=== PATIENT | female | born 1940 | race Caucasian/White ===

== ENCOUNTER 2021-05-06 20:00 | Inpatient (IN) | payer MEDICARE, MEDICAID, SELFPAY ==
[2021-05-06 20:04] VITALS: BP 163/69; PULSE 83; RESP 18; TEMP 36.6; O2SAT 97; BMI 27.1
--- NOTE | 2021-05-06 20:43 | EKG12_ITS ---
Test Reason : DYSRHYTHMIA Blood Pressure : / mmHG Vent. Rate : 082 BPM Atrial Rate : 082 BPM P-R Int : 206 ms QRS Dur : 068 ms QT Int : 404 ms P-R-T Axes : 065 -22 076 degrees QTc Int : 472 ms Normal sinus rhythm Low voltage QRS Borderline ECG Confirmed by QUANG FRY, XIANG ([id number]), medical editor PUJA STEWARD ([id number]) on 05/09/2021 11:15:59 AM Referred By: JOE Confirmed By:XIANG DEL RIO MD
[2021-05-06 20:51] LABS: Absolute Lymphocyte Count 1.38 X10^3/uL (0.83-4.51); Absolute Neutrophil Count 9.7 X10^3/uL (2.0-7.7); Basophil% 0.8 % (0-1); Eosinophil# 0.95 X10^3/uL; Eosinophils% 7.2 % (0-5); Hematocrit 44.2 % (37-47); Hemoglobin 14.1 g/dL (12.0-15.0); Lymphocyte # 1.38 X10^3/ul (0.83-4.51); Lymphocyte % 10.4 % (19-41); Mean Corp Hgb Conc 31.9 g/dL (32-36); Mean Corpuscular Hgb 27.6 pg (27.0-32.0); Mean Corpuscular Volume 86.5 fL (81-99); Mean Platelet Vol. 10.3 fl (6.2-12.0); Monocyte# 0.97 X10^3/uL; Monocyte% 7.3 % (0-10); NRBC Flagged by Analyzer 0 % (0-5); Neutrophil # 9.69 X10^3/uL (2.7-7.7); Neutrophil % 72.9 % (47-70); Platelet Count 514 K/mm3 (150-450); RBC Distribution Width CV 14.5 % (11.6-14.6); RBC Distribution Width SD 46.1 fl (35.1-43.9); Red Blood Count 5.11 M/mm3 (4.2-5.4); White Blood Count 13.3 K/mm3 (4.4-11.0)
[2021-05-06 21:00] LABS: Anion Gap 8 (5-15); BUN 42 mg/dL (7-18); BUN/Creat Ratio 34.7 RATIO (10-20); Calcium,Total 10.1 mg/dL (8.5-10.1); Chloride 97 mmol/L (98-107); Creatinine, Serum 1.21 mg/dL (0.55-1.02); EST Glomerular Filtration Rate 46 mL/min (>60); Est Glom Filt Rate - Afr Amer 55 mL/min (>60); Estimated Creatinine Clearance 34.71 ml/min; Glucose 126 mg/dL (74-106); Potassium 4.8 mmol/L (3.5-5.1); Sodium Level 130 mmol/L (136-145)
--- NOTE | 2021-05-06 21:03 | RAD_ITS ---
HISTORY: Stroke EXAMINATION/TECHNIQUE: XR Chest 1 View: Portable upright AP chest x-ray COMPARISON: 12/10/15 FINDINGS: LINES/DEVICES: None. LUNGS: No consolidation, edema or effusion. No pneumothorax. MEDIASTINUM AND CARDIOVASCULAR STRUCTURES: Cardiac silhouette not enlarged. Central airways and mediastinal contour are unremarkable. BONES AND SOFT TISSUES: No acute bony abnormalities. RAD/Chest 1 View (Portable) IMPRESSION: No radiographic evidence of acute cardiopulmonary disease. at 2131 Reported and signed by: Jeremiah Begum MD Electronically Signed: Jeremiah Begum MD at 21:30 EST Tel , Service support ,
[2021-05-06 21:10] LABS: Partial Thromboplast Time 36.7 Seconds (24.1-36.2)
--- NOTE | 2021-05-06 21:30 | EX.ED.DYSGE1 ---
HPI History of Present Illness Chief Complaint: Alt LOC Detail of Chief Complaint: Altered mental status over the past 1 to 2 days Informant: family (Daughter is a nurse and was the primary informant.) Onset/Context/Timing Onset: Today (May have been yesterday.) Context: Sudden Onset (Per daughter) Timing: Intermittent Quality: Altered mental status with decreased level of consciousness Location: Presents from nursing facility Current Severity: Mild Maximum Severity: Moderate Worsened by: Uncertain Relieved by: Nothing Associated Symptoms Associated Symptoms: Limited history other than what daughter has told me Narrative Narrative: Patient is an elderly woman who with history of congestive heart failure, hypertension, CVA and obesity who fell and had right hip surgery at [facility] in March. Her course was complicated by the fact that she vomited and aspirated after falling. She was in the hospital for 2 weeks. She had a COVID test performed at [facility] prior to surgery. Negative. She had recent [facility] test at [facility] which was positive. She also had a UTI. Her Cipro dose was decreased from 500 mg twice daily to 250 because of significant dehydration . Daughter states that she is not able to recognize her she requested transfer to the hospital. Daughter informed me that she normally is alert oriented. She has not been able to go to physical therapy because she was quarantined for the positive COVID test. Prior similar symptoms: No Recent Illness/Hospitalization: Yes [facility] Medical History (Updated 05/06/21 @ 22:[address] Vitaliy Dempsey MD) Anemia CAD (coronary artery disease) CVA (cerebral vascular accident) Duodenal ulcer Dysphagia GERD (gastroesophageal reflux disease) Hemiparesis Hemiplegia affecting right dominant side Hip fracture HTN (hypertension) Hyperlipidemia Osteoarthritis PVD (peripheral vascular disease) Home Medications irbesartan [Avapro] 300 mg PO DAILY 04/11/15 [History Last Taken Unknown] aspirin 81 mg PO DAILY@0800 12/08/15 [History Last Taken Unknown] rosuvastatin [Crestor] 20 mg PO QHS #30 tablet 12/09/15 [Rx Last Taken Unknown] acetaminophen [Tylenol] 650 mg PO Q6H PRN PRN #0 tablet 12/29/15 [Rx Last Taken Unknown] bethanechol chloride 25 mg PO TID tablet 12/29/15 [Rx Last Taken Unknown] clopidogrel 75 mg PO DAILY tablet 12/29/15 [Rx Last Taken Unknown] lorazepam 0.5 mg PO QHS PRN PRN #10 tablet 12/29/15 [Rx Last Taken Unknown] polysaccharide iron complex [Ferrex 150] 150 mg PO DAILYCM capsule 12/29/15 [Rx Last Taken Unknown] sennosides-docusate sodium [Stool Softener-Stimulant Laxat] 2 tab PO BID tablet 12/29/15 [Rx Last Taken Unknown] tamsulosin 0.4 mg PO DAILY@1730 capsule 12/29/15 [Rx Last Taken Unknown] hydrocodone-acetaminophen 1 tab PO Q4H PRN PRN #12 tablet 02/06/16 [Rx Last Taken Unknown] amlodipine [Norvasc] 5 mg PO DAILY 05/06/21 [History Last Taken Unknown] cholecalciferol (vitamin D3) [Vitamin D3] 125 mcg PO DAILY 05/06/21 [History Last Taken Unknown] ciprofloxacin HCl [Cipro] 250 mg PO BID 05/06/21 [History Last Taken Unknown] enoxaparin 40 mg SUBCUT DAILY 05/06/21 [History Last Taken Unknown] hydrochlorothiazide 12.5 mg PO DAILY 05/06/21 [History Last Taken Unknown] isosorbide mononitrate 30 mg PO DAILY 05/06/21 [History Last Taken Unknown] magnesium 400 mg PO DAILY 05/06/21 [History Last Taken Unknown] metoprolol succinate 25 mg PO DAILY 05/06/21 [History Last Taken Unknown] pantoprazole [Protonix] 40 mg PO DAILY 05/06/21 [History Last Taken Unknown] polyethylene glycol 17 ea MISCELLANEOUS DAILY 05/06/21 [History Last Taken Unknown] potassium chloride [Klor-Con M20] 10 meq PO BID 05/06/21 [History Last Taken Unknown] Allergy/AdvReac Type Severity Reaction Status Date / Time albuterol [From Ventolin HFA] Allergy RAPID Verified 05/06/21 22:27 HEART RATE amlodipine besylate Allergy makes her Verified 05/06/21 22:27 [From Norvasc] feel weird per daughter, SWELLING aspirin [From Aggrenox] Allergy EXTREME Verified 05/06/21 22:27 HAIR LOSS, MUSCLE/JOINT PAIN AND DIZZINESS atenolol Allergy LEG PAIN Verified 05/06/21 22:27 DROWSINESS AND TIREDNESS atorvastatin calcium Allergy MUSCLE PAIN Verified 05/06/21 22:27 [From Lipitor] candesartan cilexetil Allergy Unknown Verified 05/06/21 20:08 [From Atacand] citalopram Allergy INSOMNIA, Verified 05/06/21 22:27 FEVER, codeine Allergy Anaphylaxis Verified 05/06/21 20:08 diltiazem HCl [From Cardizem] Allergy Swelling Verified 05/06/21 22:27 dipyridamole [From Aggrenox] Allergy Unknown Verified 05/06/21 20:08 hydrocodone bitartrate Allergy Rash Verified 05/06/21 22:27 [From Vicodin] lisinopril Allergy COUGH Verified 05/06/21 22:27 metoprolol Allergy FATIGUE Verified 05/06/21 22:27 naproxen [From Naprosyn] Allergy Unknown Verified 05/06/21 20:08 niacin Allergy ENTIRE Verified 05/06/21 22:27 [From Niaspan BODY Extended-Release] FLUSHED omeprazole [From Prilosec] Allergy SEVERE Verified 05/06/21 22:27 BACK PAIN omeprazole magnesium Allergy SEVERE Verified 05/06/21 22:27 [From Prilosec] BACK PAIN oxycodone HCl [From Percocet] Allergy RASH, Verified 05/06/21 22:27 ITCHING pentazocine lactate Allergy JITTERY, Verified 05/06/21 22:27 [From Talwin] HYPER, INSOMNIA pramipexole di-HCl Allergy Swelling Verified 05/06/21 22:27 [From Mirapex] terazosin Allergy Unknown Verified 05/06/21 20:08 valsartan [From Diovan] Allergy BLURRED Verified 05/06/21 22:27 VISION, CHEST PAIN, DIZZINESS, AND TIREDNESS venlafaxine HCl Allergy MENTAL Verified 05/06/21 22:27 [From Effexor] STATUS CHANGE morphine AdvReac Other Verified 05/06/21 20:08 rosuvastatin calcium AdvReac LEG CRAMPS Verified 05/06/21 20:08 [From Crestor] IV DYE Allergy Anaphylaxis Uncoded 05/06/21 20:08 Social History (Updated 05/06/21 @ 21:[address] Vitaliy Dempsey MD) housing: [facility] Smoking Status: Unknown if ever smoked substance use type: does not use ROS ROS ED Review of Systems ROS Unobtainable: due to mental status Neurologic Neurologic: Reports weakness EXAM Physical Exam Const Vital Signs: 05/06/21 20:04 05/06/21 20:43 Temperature 97.8 F Temperature Source Temporal Pulse Rate 83 Respiratory Rate 18 Blood Pressure 163/69 H Blood Pressure Mean 100 Pulse Ox 97 Oxygen Delivery Method Room Air Room Air Positive well nourished and well developed General Appearance ED: well developed, NAD and other Patient is somnolent. Requires repeated verbal and mild tactile stimulus. She will answer questions. Questions that she answers is appropriate and verified with daughter. ; Negative for cyanotic, diaphoretic or pallor HEENT Reports TM's clear and dry mucous membranes Negative for trauma or tenderness Tympanic Membrane ED: Yes TM's clear Mouth ED: Yes dry mucous membranes Mouth: dry mucous membranes Eyes PERRL and EOMs intact bilaterally General Eye ED: Negative for pale conjunctiva or scleral icterus Neck no lymphadenopathy, supple and no JVD Resp normal respiratory effort and clear to auscultation bilaterally Effort and Inspection: Negative for pain with movement Cardio regular rate, regular rhythm, S1 normal heart sound, S2 normal heart sound and no murmurs GI normal to inspection, nondistended, normoactive bowel sounds and non-tender Palpation: soft Back/Spine no CVA tenderness General Back: Negative for CVA tenderness Cervical Spine: Negative for cervical spine tenderness Thoracic Spine / Upper Back: Negative for thoracic spinal tenderness or paraspinal muscle tenderness Extremity normal to inspection Extremity Narrative: Well-healed surgical incision right greater trochanteric area that is healing without evidence infection General Extremety ED: Yes edema; Negative for tenderness General Extremity: edema Neuro oriented x3 and No CN's II-XII intact bilaterally Sensorium / Orientation: Negative for alert Psych Psych Narrative: Difficult to assess There is area of mild erythema anterior mid chest. Skin no rashes or lesions noted, No no wounds and No skin turgor normal General Skin Exam: Negative for jaundice or pallor MDM MDM MDM Narrative Medical decision making narrative: With delirium/encephalitis which may be due to COVID versus UTI. Blood work is remarkable for hemoglobin of 14.16. Her hemoglobin on April 19 was 9.7. Her BUN and creatinine were normal at that time as well. Daughter states that her lab work showed severe dehydration. Need to evaluate metabolic versus infectious cause of her altered mental status. With her having a positive COVID-19 test chest x-ray is obtained. Patient is profoundly dehydrated. Even though she has COVID we will administer fluid bolus and start her on a infusion of 250 cc/h. UA was a obtained to determine if she still has evidence of urinary tract infection. She will require admission. Lab Data Attestation: I reviewed the patient's lab results. Lab results narrative: Blood work reveals marked dehydration with hemoconcentration acute renal insufficiency with prerenal azotemia. Glucose is slightly elevated and nonsignificant Labs: Laboratory Results - last 24 hr 05/06/21 05/06/21 05/06/21 20:12 20:12 20:12 WBC 13.3 H RBC 5.11 Hgb 14.1 Hct 44.2 MCV 86.5 MCH 27.6 MCHC 31.9 L RDW Std Deviation 46.1 H RDW Coeff of Joselyn 14.5 Plt Count 514 H MPV 10.3 Immature Gran % (Auto) 1.400 H Neut % (Auto) 72.9 H Lymph % (Auto) 10.4 L [place] % (Auto) 7.3 Eos % (Auto) 7.2 H Baso % (Auto) 0.8 Absolute Neuts (auto) 9.7 H Absolute Lymphs (auto) 1.38 Nucleated RBC % 0 PT 13.0 INR 1.0 APTT 36.7 H Sodium 130 L Potassium 4.8 Chloride 97 L Carbon Dioxide 25.0 Anion Gap 8 BUN 42 H Creatinine 1.21 H Estim Creat Clear Calc 34.71 Est GFR (MDRD) Af Amer 55 L Est GFR (MDRD) Non-Af 46 L BUN/Creatinine Ratio 34.7 H Glucose 126 H Lactic Acid Calcium 10.1 Urine Color Urine Clarity Urine pH Ur Specific [place] Urine Protein Urine Glucose (UA) Urine Ketones Urine Occult Blood Urine Nitrite Urine Bilirubin Urine Urobilinogen Ur Leukocyte Esterase Urine RBC Urine WBC Ur Squamous Epith Cells Urine Bacteria Urine Mucus Urine Yeast 05/06/21 05/06/21 20:12 21:55 WBC RBC Hgb Hct MCV MCH MCHC RDW Std Deviation RDW Coeff of Joselyn Plt Count MPV Immature Gran % (Auto) Neut % (Auto) Lymph % (Auto) [place] % (Auto) Eos % (Auto) Baso % (Auto) Absolute Neuts (auto) Absolute Lymphs (auto) Nucleated RBC % PT INR APTT Sodium Potassium Chloride Carbon Dioxide Anion Gap BUN Creatinine Estim Creat Clear Calc Est GFR (MDRD) Af Amer Est GFR (MDRD) Non-Af BUN/Creatinine Ratio Glucose Lactic Acid 1.5 Calcium Urine Color Yellow Urine Clarity Clear Urine pH 6.0 Ur Specific [place] 1.015 Urine Protein 30 H Urine Glucose (UA) Normal Urine Ketones 50 H Urine Occult Blood 250 H Urine Nitrite Positive H Urine Bilirubin Negative Urine Urobilinogen Normal Ur Leukocyte Esterase 500 H Urine RBC 0 SEEN Urine WBC 25-50 SEEN Ur Squamous Epith Cells 0-5 SEEN Urine Bacteria 0 SEEN Urine Mucus 0 SEEN Urine Yeast RARE Radiography Chest X-Ray - ED: 1 View and Read by ED Physician (Single view chest x-ray reveals no acute process. Cardiac silhouette size normal. Minor chronic changes of the lung. Mediastinum is unremarkable. Osseous structures are unremarkable.) Diagnostic Testing: Clinical Impression(s) from Imaging Studies Chest X-Ray 05/06/21 21:03 IMPRESSION: No radiographic evidence of acute cardiopulmonary disease. at 2131 Reported and signed by: Jeremiah Begum MD Electronically Signed: Jeremiah Begum MD at 21:30 EST Tel , Service support , EKG Initial EKG: Attestation: I personally reviewed and interpreted this EKG as follows: Interpretation: Sinus Rhythm (Normal sinus rhythm rate of 82. LA interval slightly prolonged at 206 ms. QRS duration 68 ms. QT durations normal. Bynum is normal. She does have evidence of low voltage.) Discharge Plan Dx/Rx/DC Orders Clinical Impression: Encephalopathy acute, Acute kidney insufficiency, Acute prerenal azotemia, Pyuria Disposition Disposition: [facility]
[2021-05-06 21:47] LABS: Lactic Acid 1.5 mmol/L (0.4-1.9)
[2021-05-06 22:03] LABS: Bacteria 0 SEEN /hpf (None Seen); Mucous, Urine 0 SEEN /hpf (<or=2+); Red Blood Cells-Urine 0 SEEN /hpf (0-5)
[2021-05-06 22:23] LABS: Color, Urine Yellow (Yellow); Glucose, Dipstick Normal (Normal); Ketone-Dipstick 50 mg/dl (Negative); Leukocyte Esterase-Dipstick 500 /ul (Negative); Nitrite-Dipstick Positive (Negative); Occult Blood-Urine 250 /ul (Negative); Protein-Dipstick 30 mg/dl (Negative); Specific Gravity, Urine 1.015 (1.002-1.030); Urine Bilirubin Dipstick Negative (Negative); Urine Clarity Clear (Clear); Urine Urobilinogen Normal (Normal)
[2021-05-06 22:30] LABS: Squamous Epithelial Cells - UA 0-5 SEEN /hpf (5-10); White Blood Cells 25-50 SEEN /hpf (0-5); Yeast-Urine RARE /hpf (None Seen)
[2021-05-06] MEDS: 0.9% Normal Saline 1,000 ML 250 ML IV (23:03)
[2021-05-06 23:11] VITALS: BP 150/73; PULSE 83; RESP 17; O2SAT 98
[2021-05-06 23:22] VITALS: BP 139/74; PULSE 73; RESP 15; TEMP 36.4; O2SAT 97
--- NOTE | 2021-05-06 23:28 | PCM.HP.STD ---
HPI - General General Date of Admission: 05/06/21 Date of Service: 05/06/21 Chief Complaint: Recent COVID onset, recent UTI HPI Narrative The patient is an 81 y/o F residing at SNF w/ PMHx: Hx CVA w/ R sided hemiparesis, Anxiety and Depression, HTN, HLD, Nonobstructive CAD, GERD, Chronic anemia/Fe deficiency anemia, recent 04/04/21 R hip fracture following fall w/ unfortunate aspiration pneumonia associated who presents to the [facility] ED on 05/06/21 with history of + SNF facility COVID testing with symptoms including chills, fatigue, malaise, nausea, emesis, occasional loose stool, cough and mild dyspnea sensation with no hypoxia as well as mild headache and sore throat onset 9 days prior to current presentation with fatigue, malaise, poor oral intake/anorexia, mild cough, occasional loose stool with additionally recent UTI started on ciprofloxacin with unclear organism or sensitivities with SNF reported increase fatigue, lethargy prompting ED evaluation. Patient is vaccinated against COVID with a 2 dose vaccination series and a booster. Patient's mood has significantly declined since her hip fracture and then COVID illness. Daughter believes she may not have eaten for the last 6 days. Work-up in the ED included T97.8, heart rate 83, BP initially 163/69, respiratory rate 18, 97% on room air, CBC with WC 13.3, hemoglobin 14.1, platelet 514 with increased immature granulocytes with left shift, unremarkable coags, BMP with sodium 130, chloride 87, BUN/creatinine 42/1.21, glucose 126, lactic acid 1.5, chest x-ray with no acute cardiopulmonary findings, urinalysis with 250 occult blood, positive nitrite, 500 leukocyte esterase, urine WBCs 25-50 with no urine bacteria with urine culture pending recently initiated on ciprofloxacin as noted for UTI. In the ED patient administered Rocephin and normal saline bolus. [facility] Medical History (Updated 05/07/21 @ 01:[address] Jaimie Lambert MD) Anemia CAD (coronary artery disease) CVA (cerebral vascular accident) Duodenal ulcer Dysphagia GERD (gastroesophageal reflux disease) Hemiparesis Hemiplegia affecting right dominant side Hip fracture HTN (hypertension) Hyperlipidemia Osteoarthritis PVD (peripheral vascular disease) Home Medications irbesartan [Avapro] 300 mg PO QHS 04/11/15 [History Last Taken Unknown] aspirin 81 mg PO DAILY@0800 12/08/15 [History Last Taken Unknown] rosuvastatin [Crestor] 20 mg PO QHS #30 tablet 12/09/15 [Rx Last Taken Unknown] acetaminophen [Tylenol] 650 mg PO Q6H PRN PRN #0 tablet 12/29/15 [Rx Last Taken Unknown] bethanechol chloride 25 mg PO TID tablet 12/29/15 [Rx Last Taken Unknown] clopidogrel 75 mg PO DAILY tablet 12/29/15 [Rx Last Taken Unknown] lorazepam 0.5 mg PO QHS PRN PRN #10 tablet 12/29/15 [Rx Last Taken Unknown] polysaccharide iron complex [Ferrex 150] 150 mg PO DAILYCM capsule 12/29/15 [Rx Last Taken Unknown] sennosides-docusate sodium [Stool Softener-Stimulant Laxat] 2 tab PO BID tablet 12/29/15 [Rx Last Taken Unknown] tamsulosin 0.4 mg PO DAILY@1730 capsule 12/29/15 [Rx Last Taken Unknown] hydrocodone-acetaminophen 1 tab PO Q4H PRN PRN #12 tablet 02/06/16 [Rx Last Taken Unknown] amlodipine [Norvasc] 5 mg PO DAILY 05/06/21 [History Last Taken Unknown] cholecalciferol (vitamin D3) [Vitamin D3] 125 mcg PO DAILY 05/06/21 [History Last Taken Unknown] ciprofloxacin HCl [Cipro] 250 mg PO BID 05/06/21 [History Last Taken Unknown] enoxaparin 40 mg SUBCUT DAILY 05/06/21 [History Last Taken Unknown] hydrochlorothiazide 12.5 mg PO DAILY 05/06/21 [History Last Taken Unknown] isosorbide mononitrate 30 mg PO DAILY 05/06/21 [History Last Taken Unknown] magnesium 400 mg PO DAILY 05/06/21 [History Last Taken Unknown] metoprolol succinate 25 mg PO DAILY 05/06/21 [History Last Taken Unknown] pantoprazole [Protonix] 40 mg PO DAILY 05/06/21 [History Last Taken Unknown] polyethylene glycol 17 ea MISCELLANEOUS DAILY 05/06/21 [History Last Taken Unknown] potassium chloride [Klor-Con M20] 10 meq PO BID 05/06/21 [History Last Taken Unknown] Allergy/AdvReac Type Severity Reaction Status Date / Time albuterol [From Ventolin HFA] Allergy RAPID Verified 05/06/21 22:27 HEART RATE amlodipine besylate Allergy makes her Verified 05/06/21 22:27 [From Norvasc] feel weird per daughter, SWELLING aspirin [From Aggrenox] Allergy EXTREME Verified 05/06/21 22:27 HAIR LOSS, MUSCLE/JOINT PAIN AND DIZZINESS atenolol Allergy LEG PAIN Verified 05/06/21 22:27 DROWSINESS AND TIREDNESS atorvastatin calcium Allergy MUSCLE PAIN Verified 05/06/21 22:27 [From Lipitor] candesartan cilexetil Allergy Unknown Verified 05/06/21 20:08 [From Atacand] citalopram Allergy INSOMNIA, Verified 05/06/21 22:27 FEVER, codeine Allergy Anaphylaxis Verified 05/06/21 20:08 diltiazem HCl [From Cardizem] Allergy Swelling Verified 05/06/21 22:27 dipyridamole [From Aggrenox] Allergy Unknown Verified 05/06/21 20:08 hydrocodone bitartrate Allergy Rash Verified 05/06/21 22:27 [From Vicodin] lisinopril Allergy COUGH Verified 05/06/21 22:27 metoprolol Allergy FATIGUE Verified 05/06/21 22:27 naproxen [From Naprosyn] Allergy Unknown Verified 05/06/21 20:08 niacin Allergy ENTIRE Verified 05/06/21 22:27 [From Niaspan BODY Extended-Release] FLUSHED omeprazole [From Prilosec] Allergy SEVERE Verified 05/06/21 22:27 BACK PAIN omeprazole magnesium Allergy SEVERE Verified 05/06/21 22:27 [From Prilosec] BACK PAIN oxycodone HCl [From Percocet] Allergy RASH, Verified 05/06/21 22:27 ITCHING pentazocine lactate Allergy JITTERY, Verified 05/06/21 22:27 [From Talwin] HYPER, INSOMNIA pramipexole di-HCl Allergy Swelling Verified 05/06/21 22:27 [From Mirapex] terazosin Allergy Unknown Verified 05/06/21 20:08 valsartan [From Diovan] Allergy BLURRED Verified 05/06/21 22:27 VISION, CHEST PAIN, DIZZINESS, AND TIREDNESS venlafaxine HCl Allergy MENTAL Verified 05/06/21 22:27 [From Effexor] STATUS CHANGE morphine AdvReac Other Verified 05/06/21 20:08 rosuvastatin calcium AdvReac LEG CRAMPS Verified 05/06/21 20:08 [From Crestor] IV DYE Allergy Anaphylaxis Uncoded 05/06/21 20:08 Family History (Updated 05/07/21 @ 01:[address] Jaimie Lambert MD) Mother Heart disease Diabetes Father Heart disease CVA (cerebral vascular accident) Surgical History (Updated 05/07/21 @ 01:[address] Jaimie Lambert MD) H/O rectocele repair History of back surgery History of bladder surgery History of hysterectomy S/P cholecystectomy Status post-operative repair of closed fracture of right hip Social History (Updated 05/07/21 @ 01:[address] Jaimie Lambert MD) housing: jail Smoking Status: Former smoker how long ago did patient quit smoking: Quit 1998, smoked 1/2 ppd x 40 years. alcohol intake: never substance use type: does not use ROS ROS Narrative Admission Review of Systems: CONSTITUTIONAL: No weight loss, fever, + chills, weakness or fatigue. HEENT: + Headache, sore throat. Eyes: No visual loss, blurred vision, double vision or yellow sclerae. Ears, Nose, Throat: No hearing loss, sneezing. SKIN: No rash or itching, lesions, wounds. CARDIOVASCULAR: No chest pain, chest pressure or chest discomfort, palpitations, edema, orthopnea, syncopal events. RESPIRATORY: + shortness of breath, cough, No marked sputum, wheezing, hemoptysis. GASTROINTESTINAL: + anorexia, nausea, vomiting, diarrhea, No abdominal pain, melena, BRBPR. GENITOURINARY: No dysuria, frequency, urgency or retention. NEUROLOGICAL: + headache, No dizziness, syncope, paralysis, ataxia, numbness or tingling in the extremities, focal weakness, change in bowel or bladder control, seizure. MUSCULOSKELETAL: + muscle, back pain, joint pain or stiffness. HEMATOLOGIC: No anemia, bleeding or bruising. LYMPHATICS: No enlarged nodes. No history of splenectomy. PSYCHIATRIC: + history of depression or anxiety. ENDOCRINOLOGIC: No reports of sweating, cold or heat intolerance. No polyuria or polydipsia. ALLERGIES: No history of asthma, hives, eczema or rhinitis. Vital Signs Vital Signs Vital Signs: 05/06/21 20:04 05/06/21 20:43 05/06/21 23:11 Temperature 97.8 F Temperature Source Temporal Pulse Rate 83 83 Respiratory Rate 18 17 Blood Pressure 163/69 H 150/73 H Blood Pressure Mean 100 98 Pulse Ox 97 98 Oxygen Delivery Method Room Air Room Air Room Air 05/06/21 23:22 Temperature 97.6 F L Temperature Source Temporal Pulse Rate 73 Respiratory Rate 15 Blood Pressure 139/74 H Blood Pressure Mean 95 Pulse Ox 97 Oxygen Delivery Method Room Air Weight Weight: 168 lb 5.52 oz Body Mass Index (BMI) 27.1 Physical Exam Narrative Physical Examination: General: Patient awakens to stimuli, alert with conversation following, oriented to self, place and recent events, remains cooperative, laying in the ED bed, fatigued and lethargic, intermittently tearful with discussions. Skin: Normal color, normal turgor, no icterus, no cyanosis except occasional staged ecchymoses, status post right hip pinning well-appearing. HEENT: AT/NC, EOMI, PERRLA, moderately dry MM, no carotid bruits or JVD noted. Lungs: Diffusely diminished, greater bases, mildly decreased effort, no rales, ronchi or wheezing. Heart: Regular rate with regular rhythm; no gallop, rub audible. Abdomen: Soft, overweight, NTTP, ND, hyperactive bowel sounds, no obvious HSM. Extremities: No cyanosis, clubbing, or edema, status post recent right hip pinning, well-appearing, chronic right-sided hemiparesis. Neurological: Patient awake, alert, oriented as noted, cognitive function suspect improving, nearing baseline intact; pupils equally reactive to light and accommodation, cranial nerves grossly normal, chronic right-sided hemiparesis status post CVA, strength severely globally decreased secondary to acute presentation. Psychiatric: Affect appears depressed and is tearful with conversations, fatigued, underlying history of depression and anxiety. Results Lab / Micro Data Result Diagrams: 05/06/21 20:12 05/06/21 20:12 Labs: Laboratory Results - last 24 hr 05/06/21 20:12: WBC 13.3 H, RBC 5.11, Hgb 14.1, Hct 44.2, MCV 86.5, MCH 27.6, MCHC 31.9 L, RDW Std Deviation 46.1 H, RDW Coeff of Joselyn 14.5, Plt Count 514 H, MPV 10.3, Immature Gran % (Auto) 1.400 H, Neut % (Auto) 72.9 H, Lymph % (Auto) 10.4 L, [place] % (Auto) 7.3, Eos % (Auto) 7.2 H, Baso % (Auto) 0.8, Absolute Neuts (auto) 9.7 H, Absolute Lymphs (auto) 1.38, Nucleated RBC % 0 05/06/21 20:12: PT 13.0, INR 1.0, APTT 36.7 H 05/06/21 20:12: Sodium 130 L, Potassium 4.8, Chloride 97 L, Carbon Dioxide 25.0, Anion Gap 8, BUN 42 H, Creatinine 1.21 H, Estim Creat Clear Calc 34.71, Est GFR (MDRD) Af Amer 55 L, Est GFR (MDRD) Non-Af 46 L, BUN/Creatinine Ratio 34.7 H, Glucose 126 H, Calcium 10.1 05/06/21 20:12: Lactic Acid 1.5 05/06/21 21:55: Urine Color Yellow, Urine Clarity Clear, Urine pH 6.0, Ur Specific [place] 1.015, Urine Protein 30 H, Urine Glucose (UA) Normal, Urine Ketones 50 H, Urine Occult Blood 250 H, Urine Nitrite Positive H, Urine Bilirubin Negative, Urine Urobilinogen Normal, Ur Leukocyte Esterase 500 H, Urine RBC 0 SEEN, Urine WBC 25-50 SEEN, Ur Squamous Epith Cells 0-5 SEEN, Urine Bacteria 0 SEEN, Urine Mucus 0 SEEN, Urine Yeast RARE Radiology Impression Chest X-Ray 05/06/21 21:03 IMPRESSION: No radiographic evidence of acute cardiopulmonary disease. at 2131 Reported and signed by: Jeremiah Begum MD Electronically Signed: Jeremiah Begum MD at 21:30 EST Tel , Service support , Assessment & Plan Assessment/Plan (1) Encephalopathy acute: (2) Acute kidney insufficiency: (3) COVID-19 virus infection: (4) Urinary tract infection: QUALIFIERS: Hematuria presence: without hematuria Urinary tract infection type: acute cystitis Qualified Code(s): N30.00 - Acute cystitis without hematuria PLAN: The patient is an 81 y/o F residing at SNF w/ PMHx: Hx CVA w/ R sided hemiparesis, Anxiety and Depression, HTN, HLD, Nonobstructive CAD, GERD, Chronic anemia/Fe deficiency anemia, recent 04/04/21 R hip fracture following fall w/ unfortunate aspiration pneumonia associated who presents to the [facility] ED on 05/06/21 with history of + SNF facility COVID testing with symptoms including chills, fatigue, malaise, nausea, emesis, occasional loose stool, cough and mild dyspnea sensation with no hypoxia as well as mild headache and sore throat onset 9 days prior to current presentation with fatigue, malaise, poor oral intake/anorexia, mild cough, occasional loose stool with additionally recent UTI started on ciprofloxacin with unclear organism or sensitivities with SNF reported increase fatigue, lethargy prompting ED evaluation. #1. Acute Viral Syndrome, COVID-19: Will admit to the medical surgical floor on telemetry, maintain on COVID precautions until completion of COVID timeline and given currently not hypoxic she would complete her 10-day course 05/07/2021 and would be able to be out of quarantine on 05/08/2021, will maintain on oxygen with wean as tolerated to room air, PRN albuterol, HOB, IS parameters w/ pending sputum cultures and urine antigens, will obtain D-dimer, procalcitonin, CRP, CPK, Ferritin, LDH, hepatic profile and BNP, continue supportive care including q 2 hour turning including prone given no prone bed availability and judicious hydration, closely monitor for worsening status for ARDS and multiorgan failure. Given patient is not hypoxic we will defer Decadron and remdesivir therapy. #2. Acute renal insufficiency on CKD stage III, unclear subtype: Admission BUN/creatinine 42/1.21, baseline appears 0.8, we will temporarily hold nephrotoxic regimen but low threshold to quickly resume as patient does have issues with volume overload per discussion with daughter, repeat function in AM. #3. Recent Acute Urinary Tract Infection: Unclear organism, will DC ciprofloxacin and transition to IV Rocephin, will need to have staff contact facility in a.m. to see if there is any sensitivities and speciation. We will continue Flomax as suspect may have had some retention. #4. Acute encephalopathy, multifactorial: Likely secondary to acute presentation number 1, #2, #3 complicated by #5 and underlying depression that been worsening, continue treatments as noted, improving. #5. Recent hip fracture: Patient status post repair with pinning per discussion with daughter, complicated by right-sided hemiparesis, ongoing pain with family requesting involvement of palliative services which will be ordered, will order additionally pain cream compound to be placed, offloading, may add oral and IV regimen if necessary, case management/PT/OT consultations for discharge planning. #6. Anxiety and depression, Uncontrolled: Patient does have evidence of depression especially given her recent hip fracture and then COVID illness. Discussed frankly and will continue to closely monitor but if necessary patient is amenable to short-term usage of depression medications. Would benefit from counseling. #7. History CVA: Patient with significant right-sided hemiparesis, will continue aspirin, Plavix, hypertensive regimen with adjustments given mild renal insufficiency is noted with resumption once appropriate, continue statin therapy. CM/PT/OT consultations for discharge planning. #8. Hypertension: Continue home regimen including amlodipine, metoprolol, isosorbide, temporarily holding patient home Avapro and hydrochlorothiazide with judicious hydration, resume likely in a.m., PRN hydralazine. #9. Hyperlipidemia: Continue home statin regimen. #10. Nonobstructive CAD: We will continue patient aspirin, Plavix, statin, metoprolol, temporarily holding Avapro. #11. Chronic anemia/iron deficiency anemia: Admission hemoglobin 14.1, most recent labs in the system from 2016 thus unclear recent baseline, will continue iron supplementation and trending. #12. DVT prophylaxis: SCDs, Lovenox with alterations as needed pending repeat renal function. #13. CODE status: Patient CHIOMA is her daughter who is present and living will is currently in place. Discussed CODE status at length including difference between FULL code, DNR-CCA and DNR-CC status. Following discussions about the differences in these status, requested DNR-CCA, no intubation. Advanced Care Planning Face to Face Time: 16 minutes. Charges/Coding Visit Charges Inpatient E&M: 88785 Init Hosp L3 Procedures Hospitalists Procedures: 04271 Advncd Care Plan 30 Min
[2021-05-06] MEDS: Ceftriaxone 1 GM/50 ML BAG IV (23:44)
[2021-05-07] VITALS (11 sets, daily range): BP systolic 126–182; BP diastolic 53–76; PULSE 74–94; RESP 16–18; TEMP 36.6–37.2; O2SAT 95–99; BMI 27.1
[2021-05-07 00:23] LABS: BNP,B-Type NATRIURETIC PEPTIDE 6.6 pg/mL (0-100)
[2021-05-07 00:24] LABS: AST(SGOT) 47 U/L (15-37); Alanine Aminotransfer ALT/SGPT 41 U/L (13-56); Albumin, Serum 3.7 g/dL (3.2-5.0); Alkaline Phosphatase 168 U/L (45-117); CRP 6.57 mg/L (0.0-3.0); Ferritin 1236 ng/mL (8-252); Globulin 4.9 g/dL (2.2-4.2); LDH 198 U/L (84-246); Protein, Total 8.6 g/dL (6.4-8.2)
[2021-05-07 00:32] LABS: D-Dimer Quantitative (DVT/PE) 1.14 FEU/ug/m (0.27-0.49)
[2021-05-07] MEDS: 0.9% Saline Lock 10 ML Syringe IV (01:45)
[2021-05-07] MEDS: 0.9% Normal Saline 1,000 ML 100 ML IV (01:45)
--- NOTE | 2021-05-07 05:09 | PCS.PANDOC ---
PANDEMIC DOCUMENTATION INITIATED: Date: 12/06/2020 Time: 190
[2021-05-07 06:12] LABS: Absolute Lymphocyte Count 1.56 X10^3/uL (0.83-4.51); Absolute Neutrophil Count 8.7 X10^3/uL (2.0-7.7); Basophil# 0.09 X10^3/uL; Basophil% 0.7 % (0-1); Eosinophil# 1.04 X10^3/uL; Eosinophils% 8.2 % (0-5); Hematocrit 38.8 % (37-47); Hemoglobin 12.7 g/dL (12.0-15.0); Lymphocyte # 1.56 X10^3/ul (0.83-4.51); Lymphocyte % 12.4 % (19-41); Mean Corp Hgb Conc 32.7 g/dL (32-36); Mean Corpuscular Hgb 28.6 pg (27.0-32.0); Mean Corpuscular Volume 87.4 fL (81-99); Mean Platelet Vol. 10.4 fl (6.2-12.0); Monocyte# 1.12 X10^3/uL; Monocyte% 8.9 % (0-10); NRBC Flagged by Analyzer 0 % (0-5); Neutrophil # 8.66 X10^3/uL (2.7-7.7); Neutrophil % 68.5 % (47-70); Platelet Count 390 K/mm3 (150-450); RBC Distribution Width CV 14.5 % (11.6-14.6); RBC Distribution Width SD 46.3 fl (35.1-43.9); Red Blood Count 4.44 M/mm3 (4.2-5.4); White Blood Count 12.6 K/mm3 (4.4-11.0)
[2021-05-07 06:47] LABS: ALB/GLOB Ratio 0.6 RATIO (0.9-2.4); AST(SGOT) 34 U/L (15-37); Alanine Aminotransfer ALT/SGPT 38 U/L (13-56); Albumin, Serum 2.6 g/dL (3.2-5.0); Alkaline Phosphatase 134 U/L (45-117); Anion Gap 7 (5-15); BUN 33 mg/dL (7-18); BUN/Creat Ratio 38.2 RATIO (10-20); Chloride 106 mmol/L (98-107); Creatinine, Serum 0.86 mg/dL (0.55-1.02); EST Glomerular Filtration Rate 67 mL/min (>60); Est Glom Filt Rate - Afr Amer 81 mL/min (>60); Estimated Creatinine Clearance 45.05 ml/min; Globulin 4.2 g/dL (2.2-4.2); Glucose 113 mg/dL (74-106); Potassium 4.1 mmol/L (3.5-5.1); Protein, Total 6.8 g/dL (6.4-8.2); Sodium Level 132 mmol/L (136-145)
[2021-05-07 07:21] LABS: Procalcitonin 0.09 ng/mL (0.00-0.09)
[2021-05-07] MEDS: Senna/Docusate Sodium 1 Tablet 2 TABLET PO (08:38)
[2021-05-07] MEDS: Enoxaparin 40 MG/0.4 ML Syringe SC (08:38)
[2021-05-07] MEDS: Magnesium Chloride 64 MG Delay Rel.Tablet 128 MG PO (08:38)
[2021-05-07] MEDS: Acetaminophen 325 MG Tablet 650 MG PO (08:39)
[2021-05-07] MEDS: Metoprolol(XL)Succ 25 MG Tablet PO (08:39)
[2021-05-07] MEDS: amLODIPine 5 MG Tablet PO (08:39)
[2021-05-07] MEDS: Pantoprazole Sodium 40 MG Tablet PO (08:39)
[2021-05-07] MEDS: Polyethylene Glycol 3350 17 GM PACKET PO (08:40)
[2021-05-07] MEDS: hydrALAZINE 20 MG/ML Vial 10 MG IV (08:40)
[2021-05-07] MEDS: Aspirin 81 MG TAB.CHEW PO (08:40)
[2021-05-07] MEDS: Isosorbide Mononitrate 30 MG Tablet PO (08:40)
[2021-05-07] MEDS: Menthol/Lanolin/Calamine/Znox 113 GM Tube 1 APPLIC TOPICAL (08:41)
[2021-05-07] MEDS: Nystatin Powder 15gm Bottle 1 APPLIC TOPICAL (08:42)
[2021-05-07] MEDS: Arthritis Pain Compound 60 CLICK TUBE TOPICAL (08:43)
[2021-05-07] MEDS: Clopidogrel Bisulfate 75 MG Tablet PO (08:50)
--- NOTE | 2021-05-07 10:46 | TREXTCAR_ITS ---
Diet 05/07/21 01:19 Diet: Cardiac - Heart Healthy Food consistency:: Pureed Liquid Consistency:: Regular/Thin Routine Orders/Code Status Routine Lab Work: CBC (on 05/09/20) Therapies Weight Bearing: Weight bearing as tolerated Physical Therapy: Eval and Treat Occupational Therapy: Eval and Treat Problem/Diagnosis (1) Encephalopathy acute: Status: Acute Comment: etiology unknown- (2) Acute kidney insufficiency: Status: Acute Comment: resolved (3) COVID-19 virus infection: Status: Acute (4) Urinary tract infection: Status: Acute Allergies/Procedures Done in Hospital Allergies albuterol [From Ventolin HFA] Allergy (Verified 05/06/21 22:) RAPID HEART RATE amlodipine besylate [From Norvasc] Allergy (Verified 05/06/21:) makes her feel weird per daughter, SWELLING aspirin [From Aggrenox] Allergy (Verified 05/06/21:) EXTREME HAIR LOSS, MUSCLE/JOINT PAIN AND DIZZINESS atenolol Allergy (Verified 05/06/21:) LEG PAIN DROWSINESS AND TIREDNESS per dtr atorvastatin calcium [From Lipitor] Allergy (Verified 05/06/21:) MUSCLE PAIN per dtr candesartan cilexetil [From Atacand] Allergy (Verified 05/06/21 20:08) Unknown per dtr citalopram Allergy (Verified 05/06/21:) INSOMNIA, FEVER, per dtr codeine Allergy (Verified 05/06/21 20:08) Anaphylaxis per dtr diltiazem HCl [From Cardizem] Allergy (Verified 05/06/21:) Swelling per dtr dipyridamole [From Aggrenox] Allergy (Verified 05/06/21 20:08) Unknown per dtr hydrocodone bitartrate [From Vicodin] Allergy (Verified 05/06/21:) Rash per dtr lisinopril Allergy (Verified 05/06/21:) COUGH metoprolol Allergy (Verified 05/06/21:) FATIGUE naproxen [From Naprosyn] Allergy (Verified 05/06/21 20:08) Unknown per dtr niacin [From Niaspan Extended-Release] Allergy (Verified 05/06/21:) ENTIRE BODY FLUSHED per dtr omeprazole [From Prilosec] Allergy (Verified 05/06/21 22:27) SEVERE BACK PAIN per dtr omeprazole magnesium [From Prilosec] Allergy (Verified 05/06/21:) SEVERE BACK PAIN per dtr oxycodone HCl [From Percocet] Allergy (Verified 05/06/21:) RASH, ITCHING per dtr pentazocine lactate [From Talwin] Allergy (Verified 05/06/21:) JITTERY, HYPER, INSOMNIA per dtr pramipexole di-HCl [From Mirapex] Allergy (Verified 05/06/21:) Swelling per dtr terazosin Allergy (Verified 05/06/21 20:08) Unknown per dtr valsartan [From Diovan] Allergy (Verified 05/06/21:) BLURRED VISION, CHEST PAIN, DIZZINESS, AND TIREDNESS per dtr venlafaxine HCl [From Effexor] Allergy (Verified 05/06/21:) MENTAL STATUS CHANGE per dtr morphine Adverse Reaction (Verified 05/06/21 20:08) Other per dtr rosuvastatin calcium [From Crestor] Adverse Reaction (Verified 05/06/21 20:08) LEG CRAMPS per dtr IV DYE Allergy (Uncoded 05/06/21 20:08) Anaphylaxis per dtr Procedures: None Type of Care/Length of Stay Estimated LOS: Convalescent Care Less Than 30 days Type of Care Needed: Skilled Rehab Potential: Good Prognosis: Good Additional Orders/Day of Discharge H&P will serve as current which was dated: 05/06/21 Day of Discharge: 05/07/21 Discharge Plan Admission Admit Date/Time: 05/06/21 23:31 Primary Reason for Your Visit: UTI, dehydration Attending Provider: Alvaro Liang Primary Care Provider: Codey Benitez Discharge Orders/Prescriptions Prescriptions: New nystatin [Nyamyc] 100,000 unit/gram Powder 1 applic topical BID Qty: 0 RF: 0 cefdinir 300 mg capsule 300 mg PO BID Qty: 14 RF: 0 Continued rosuvastatin [Crestor] 20 MG tablet 20 mg PO QHS Qty: 30 RF: 0 acetaminophen [Tylenol] 325 MG tablet 650 mg PO Q6H PRN PRN (Reason: Mild Pain (0-3/10)/Headache) Qty: 0 RF: 0 sennosides-docusate sodium [Stool Softener-Stimulant Laxat] 1 TABLET tablet 2 tab PO BID RF: 0 clopidogrel 75 MG tablet 75 mg PO DAILY RF: 0 isosorbide mononitrate 30 mg Tablet Extended Release 24 Hr 30 mg PO DAILY RF: 0 amlodipine [Norvasc] 5 mg Tablet 5 mg PO DAILY RF: 0 pantoprazole [Protonix] 40 mg Tablet,Delayed Release (Dr/Ec) 40 mg PO DAILY RF: 0 metoprolol succinate 25 mg Tablet Extended Release 24 Hr 25 mg PO DAILY RF: 0 polyethylene glycol Powder 17 ea MISCELLANEOUS DAILY RF: 0 magnesium 200 mg Tablet 400 mg PO DAILY RF: 0 enoxaparin 40 mg/0.4 mL Syringe 40 mg SUBCUT DAILY RF: 0 cholecalciferol (vitamin D3) [Vitamin D3] 125 mcg (5,000 unit) Tablet 125 mcg PO MOWEFR RF: 0 Changed irbesartan [Avapro] 300 MG tablet 150 mg PO QHS Qty: 0 RF: 0 Discontinued ciprofloxacin HCl [Cipro] 250 mg Tablet 250 mg PO BID RF: 0 potassium chloride [Klor-Con M20] 20 MEQ tablet,ER particles/crystals 10 meq PO BID RF: 0 hydrochlorothiazide 25 MG tablet 12.5 mg PO DAILY RF: 0 Referrals / Follow Up: Codey Benitez MD [Primary Care Provider] - Disposition Disposition (needs filled in before D/C Order can be placed): [facility] Care Facility
--- NOTE | 2021-05-07 11:22 | CM.ED ---
ARIELA Gudino RN LC stated that patient can return to [facility] today. ARIELA called [facility] and spoke to Ashley about patient returning today. Ashley will speak to her commercial intelligence manager and call this remote mortgage underwriter back about patient returning to [facility]. ARIELA called [facility] and spoke to Ashley. She said that she just got a text from her boss stating that we can take her back. Ashley said that patient was skilled when she left SNF so she will be skilled when she returns. ARIELA updated RN LC MARCELINO
--- NOTE | 2021-05-07 12:13 | DS.PCM_ITS ---
Providers Date of Admission: 05/06/21 Date of Discharge: 05/07/21 Primary Care Physician: Dr. Codey Benitez MD Reason For Visit: ENCEPHALOPATHY, COVID, RECENT UTI, Diagnosis Discharge Diagnosis (1) Encephalopathy acute: Status: Acute Code(s): G93.40 - Encephalopathy, unspecified (2) Acute kidney insufficiency: Status: Acute Code(s): N28.9 - Disorder of kidney and ureter, unspecified (3) COVID-19 virus infection: Status: Acute Code(s): U07.1 - COVID-19 (4) Urinary tract infection: Status: Acute Code(s): N39.0 - Urinary tract infection, site not specified Qualifiers: Hematuria presence: without hematuria Urinary tract infection type: acute cystitis Qualified Code(s): N30.00 - Acute cystitis without hematuria Plan: 1. Metabolic encephalopathy secondary to COVID-19 infection and acute cystitis #2 COVID-19 infection #3 acute cystitis present on admission #4 dehydration #5 essential hypertension Medications at Discharge Home Medications rosuvastatin [Crestor] 20 mg PO QHS #30 tablet 12/09/15 acetaminophen [Tylenol] 650 mg PO Q6H PRN PRN #0 tablet 12/29/15 clopidogrel 75 mg PO DAILY tablet 12/29/15 sennosides-docusate sodium [Stool Softener-Stimulant Laxat] 2 tab PO BID tablet 12/29/15 amlodipine [Norvasc] 5 mg PO DAILY 05/06/21 cholecalciferol (vitamin D3) [Vitamin D3] 125 mcg PO MOWEFR 05/06/21 enoxaparin 40 mg SUBCUT DAILY 05/06/21 isosorbide mononitrate 30 mg PO DAILY 05/06/21 magnesium 400 mg PO DAILY 05/06/21 metoprolol succinate 25 mg PO DAILY 05/06/21 pantoprazole [Protonix] 40 mg PO DAILY 05/06/21 polyethylene glycol 17 ea MISCELLANEOUS DAILY 05/06/21 cefdinir 300 mg PO BID #14 cap 05/07/21 irbesartan [Avapro] 150 mg PO QHS #0 tab 05/07/21 nystatin [Nyamyc] 1 applic TOPICAL BID #0 g 05/07/21 Hospital Course Operations None Procedures None Summary of Care Provided Minutes Spent on Discharge: 31 Hospital Course: This 81-year-old white female was seen in the emergency room at [facility] after being transported from a local extended care facility at which she is receiving inpatient rehab services. Patient had a recent COVID-19 test that came back positive, she was not hypoxic. Patient was also being treated for urinary tract infection with Cipro at the extended care facility. Patient had not been intaking fluids at the facility at a normal level. Work-up in the emergency room included a CBC which was remarkable for a white blood cell count of 13.3, hemoglobin was 14.1, chemistry profile showed a sodium of 130, BUN of 42, and a creatinine of 1.2. Chest x-ray showed no evidence of acute cardiopulmonary disease. Patient's urinalysis showed white blood cell count of 25-50, 0 bacteria were seen, nitrites were positive. Patient was admitted to [place] [id number], she was placed on IV antibiotics for cystitis, she was given fluids, the following day her mental status improved and she was felt to be stable for discharge back to the extended care facility. I talked to the patient's daughter before discharging her. On 05/07/2021, patient was seen and examined: On examination she appeared her stated age, she does not appear to be in any distress. Vital signs as documented. Skin warm and dry and without overt rashes. Neck without JVD, thyroid appears normal, trachea is midline, neck is supple. Lungs clear, normal air movement was noted. Heart exam notable for regular rhythm, normal sounds and absence of murmurs, rubs or gallops. Abdomen unremarkable and without evidence of organomegaly, masses, or abdominal aortic enlargement, bowel sounds are present in all 4 quadrants, no abdominal tenderness was noted. Extremities nonedematous, no cyanosis was noted, no clubbing was noted. Neuro: Cranial nerves II through XII are grossly intact, no focal motor deficits were noted, se nsation to light touch and pinprick is intact, motor exam 5/5 throughout. Psych: Patient is alert and oriented x3, she does not appear anxious or depressed, she does not appear agitated. On 05/07/2021, patient was discharged back to her extended care facility in stable condition. Weight / BMI Weight Weight: 72.8 kg Body Mass Index (BMI) 27.1 ABG / Lab / Microbiology Data Result Diagrams: 05/07/21 05:35 05/07/21 05:35 Laboratory: Laboratory Results - last 24 hr 05/06/21 20:12: WBC 13.3 H, RBC 5.11, Hgb 14.1, Hct 44.2, MCV 86.5, MCH 27.6, MCHC 31.9 L, RDW Std Deviation 46.1 H, RDW Coeff of Joselyn 14.5, Plt Count 514 H, MPV 10.3, Immature Gran % (Auto) 1.400 H, Neut % (Auto) 72.9 H, Lymph % (Auto) 10.4 L, [place] % (Auto) 7.3, Eos % (Auto) 7.2 H, Baso % (Auto) 0.8, Absolute Neuts (auto) 9.7 H, Absolute Lymphs (auto) 1.38, Nucleated RBC % 0 05/06/21 20:12: PT 13.0, INR 1.0, APTT 36.7 H 05/06/21 20:12: Sodium 130 L, Potassium 4.8, Chloride 97 L, Carbon Dioxide 25.0, Anion Gap 8, BUN 42 H, Creatinine 1.21 H, Estim Creat Clear Calc 34.71, Est GFR (MDRD) Af Amer 55 L, Est GFR (MDRD) Non-Af 46 L, BUN/Creatinine Ratio 34.7 H, Glucose 126 H, Calcium 10.1 05/06/21 20:12: Lactic Acid 1.5 05/06/21 20:12: D-Dimer Quant (PE/DVT) 1.14 H* 05/06/21 20:12: Ferritin 1236 H, Total Bilirubin 0.50, Direct Bilirubin 0.20, AST 47 H, ALT 41, Alkaline Phosphatase 168 H, Lactate Dehydrogenase 198, C-React Prot Ext Range 6.57 H, Total Protein 8.6 H, Albumin 3.7, Globulin 4.9 H 05/06/21 20:12: B-Natriuretic Peptide 6.6 05/06/21 21:55: Urine Color Yellow, Urine Clarity Clear, Urine pH 6.0, Ur Specific [place] 1.015, Urine Protein 30 H, Urine Glucose (UA) Normal, Urine Ketones 50 H, Urine Occult Blood 250 H, Urine Nitrite Positive H, Urine Bilirubin Negative, Urine Urobilinogen Normal, Ur Leukocyte Esterase 500 H, Urine RBC 0 SEEN, Urine WBC 25-50 SEEN, Ur Squamous Epith Cells 0-5 SEEN, Urine Bacteria 0 SEEN, Urine Mucus 0 SEEN, Urine Yeast RARE 05/07/21 05:35: Procalcitonin 0.09 05/07/21 05:35: WBC 12.6 H, RBC 4.44, Hgb 12.7, Hct 38.8, MCV 87.4, MCH 28.6, MCHC 32.7, RDW Std Deviation 46.3 H, RDW Coeff of Joselyn 14.5, Plt Count 390, MPV 10.4, Immature Gran % (Auto) 1.300 H, Neut % (Auto) 68.5, Lymph % (Auto) 12.4 L, [place] % (Auto) 8.9, Eos % (Auto) 8.2 H, Baso % (Auto) 0.7, Absolute Neuts (auto) 8.7 H, Absolute Lymphs (auto) 1.56, Nucleated RBC % 0 05/07/21 05:35: Sodium 132 L, Potassium 4.1, Chloride 106, Carbon Dioxide 19.0 L , Anion Gap 7, BUN 33 H, Creatinine 0.86, Estim Creat Clear Calc 45.05, Est GFR (MDRD) Af Amer 81, Est GFR (MDRD) Non-Af 67, BUN/Creatinine Ratio 38.2 H, Glucose 113 H, Calcium 9.0, Total Bilirubin 0.40, AST 34, ALT 38, Alkaline Phosphatase 134 H, Total Protein 6.8, Albumin 2.6 L, Globulin 4.2, Albumin/Globulin Ratio 0.6 L Microbiology: Microbiology 05/06/21 21:55 Urine Catheter - [place] Urine Culture - Preliminary Culture exhibits no growth. 05/07/21 00:27 Urine Catheter - Catheter Legionella Antigen - Final 05/07/21 00:27 Urine Catheter - Catheter Streptococcus pneumoniae Antigen (M - Final Radiography Diagnostic Testing: Radiology Impression Chest X-Ray 05/06/21 21:03 IMPRESSION: No radiographic evidence of acute cardiopulmonary disease. at 2131 Reported and signed by: Jeremiah Begum MD Electronically Signed: Jeremiah Begum MD at 21:30 EST Tel , Service support , Meaningful Use Info Meaningful Use Diagnoses (Choose all that apply): None applicable Discharge Plan Admission Admit Date/Time: 05/06/21 23:31 Primary Reason for Your Visit: UTI, dehydration Attending Provider: Alvaro Liang Primary Care Provider: Codey Benitez Discharge Orders/Prescriptions Prescriptions: New nystatin [Nyamyc] 100,000 unit/gram Powder 1 applic topical BID Qty: 0 RF: 0 cefdinir 300 mg capsule 300 mg PO BID Qty: 14 RF: 0 Continued rosuvastatin [Crestor] 20 MG tablet 20 mg PO QHS Qty: 30 RF: 0 acetaminophen [Tylenol] 325 MG tablet 650 mg PO Q6H PRN PRN (Reason: Mild Pain (0-3/10)/Headache) Qty: 0 RF: 0 sennosides-docusate sodium [Stool Softener-Stimulant Laxat] 1 TABLET tablet 2 tab PO BID RF: 0 clopidogrel 75 MG tablet 75 mg PO DAILY RF: 0 isosorbide mononitrate 30 mg Tablet Extended Release 24 Hr 30 mg PO DAILY RF: 0 amlodipine [Norvasc] 5 mg Tablet 5 mg PO DAILY RF: 0 pantoprazole [Protonix] 40 mg Tablet,Delayed Release (Dr/Ec) 40 mg PO DAILY RF: 0 metoprolol succinate 25 mg Tablet Extended Release 24 Hr 25 mg PO DAILY RF: 0 polyethylene glycol Powder 17 ea MISCELLANEOUS DAILY RF: 0 magnesium 200 mg Tablet 400 mg PO DAILY RF: 0 enoxaparin 40 mg/0.4 mL Syringe 40 mg SUBCUT DAILY RF: 0 cholecalciferol (vitamin D3) [Vitamin D3] 125 mcg (5,000 unit) Tablet 125 mcg PO MOWEFR RF: 0 Changed irbesartan [Avapro] 300 MG tablet 150 mg PO QHS Qty: 0 RF: 0 Discontinued ciprofloxacin HCl [Cipro] 250 mg Tablet 250 mg PO BID RF: 0 potassium chloride [Klor-Con M20] 20 MEQ tablet,ER particles/crystals 10 meq PO BID RF: 0 hydrochlorothiazide 25 MG tablet 12.5 mg PO DAILY RF: 0 Referrals / Follow Up: Codey Benitez MD [Primary Care Provider] - Disposition Disposition (needs filled in before D/C Order can be placed): [facility] Facility Charges/Coding Visit Charges Inpatient E&M: 86233 Disch Hosp
[2021-05-07] MEDS: Ceftriaxone 1 GM/50 ML BAG IV (12:17)
== END 2021-05-07 14:31 | DRG 178 ==
LOC: ED 22:41 → MS3 23:44
PROVIDERS: Admitting Provider Family Medicine; Emergency Provider Emergency Medicine; PCP Internal Medicine Pulmonary Disease; Visit Provider Internal Medicine
DX: U07.1 COVID-19 (principal); I69.951 Hemiplegia and hemiparesis following unspecified cerebrovascular disease affecting right dominant side; N30.00 Acute cystitis without hematuria; I50.9 Heart failure, unspecified; N18.30 Chronic kidney disease, stage 3 unspecified; S72.001S Fracture of unspecified part of neck of right femur, sequela; E86.0 Dehydration; K21.9 Gastro-esophageal reflux disease without esophagitis; I25.10 Atherosclerotic heart disease of native coronary artery without angina pectoris; D50.9 Iron deficiency anemia, unspecified; E78.5 Hyperlipidemia, unspecified; M19.90 Unspecified osteoarthritis, unspecified site; F41.9 Anxiety disorder, unspecified; R13.10 Dysphagia, unspecified; F32.A Depression, unspecified; E66.9 Obesity, unspecified; Z79.01 Long term (current) use of anticoagulants; Z79.02 Long term (current) use of antithrombotics/antiplatelets; Z79.82 Long term (current) use of aspirin; Z87.891 Personal history of nicotine dependence; Z79.899 Other long term (current) drug therapy; Z68.27 Body mass index [BMI] 27.0-27.9, adult
CPT/HCPCS: 36415; 51702; 71045; 80048; 80053; 80076; 81001; 82728; 83605; 83615; 83880; 84145; 85025; 85379; 85610; 85730; 86140; 87086; 87088; 87449; 93005; 94762; 99285; J7030; A4216